=== PATIENT | male | born 1955 | race Caucasian/White ===

== ENCOUNTER 2017-02-11 15:23 | Emergency (ER) | payer OTHER ==
[~2017-02-11] VITALS: Ht 172.7 cm; Wt 63.5 kg
[~2017-02-11 15:23] MED LIST: AMOXICILLIN500 M3 PO; ASPIRIN CHILDRE81 MG PO; BACTRIM DS 8001 TA1 PO; BLOODPRESSURE; HYDROCODONE BIT1 T11 PO; KEFLEX500 MG PO; PERCOCET 325 MG1 TA4 PO; PREDNISONE10 MG PO; SUBOXONE 8 MG-1 EACH SL; TYLENOL W/CODEI1 TA2 PO; ZOVIRAX400 MG PO
[2017-02-11 16:07] LABS: HEMOGLOBIN 14.4 g/dl (14.0-18.0); MEAN CELL VOLUME 98.6 fl (80.0-94.0); MEAN CORPUSCULAR HGB 33.8 pg (27.0-31.0); MEAN CORPUSCULAR HGB CONC 34.3 g/dl (33.0-37.0); MEAN PLATELET VOLUME 9.1 fl (9.6-12.3); PLATELET COUNT AUTOMATED 238 10*3/uL (130-400); RED BLOOD COUNT 4.26 10*6/uL (4.50-5.90); RED CELL DISTRI WIDTH 13.1 % (0-14.5); WHITE BLOOD COUNT 22.1 10*3/uL (4.8-10.8)
[2017-02-11 16:22] LABS: ALKALINE PHOSPHATASE 89 U/L (45-117); BILIRUBIN, TOTAL 0.7 mg/dl (0.2-1.0); BUN 20 mg/dl (7-24); CARBON DIOXIDE 27 mmol/L (21-32); CHLORIDE 93 mmol/L (98-107); EST GLOM FILT AFRICAN AMERICAN > 60 ml/min; GLUCOSE 134 mg/dL (65-99); POTASSIUM 4.2 mmol/L (3.5-5.1); SGOT/AST 15 IU/L (3-35); SGPT/ALT 15 U/L (12-78); SODIUM 130 mmol/L (136-145); TOTAL PROTEIN 7.9 gm/dL (6.4-8.2)
[2017-02-11 16:26] LABS: BASOPHIL # 0.2 10*3/uL (0-0.1); BASOPHILS 1 % (0-1); LYMPHOCYTE # 1.1 10*3/uL (1.3-4.4); MONOCYTE # 2.2 10*3/uL (0.1-1.0); NEUTROPHIL # 18.6 10*3/uL (2.3-7.9); NEUTROPHILS 84 % (47-73); PLATELET SUFFICIENCY NORMAL (NORMAL); TOTAL CELLS COUNTED 100 #CELLS
[2017-02-11] MEDS ORDERED: CLINDAMYCIN HC300 MG PO (16:45)
== END 2017-02-11 16:56 | disposition left against medical advice (07) ==
LOC: ED 15:23
PROVIDERS: Nurse Practitioner Family
DX: L03.115 Cellulitis of right lower limb (principal); F17.200 Nicotine dependence, unspecified, uncomplicated; Z79.82 Long term (current) use of aspirin

== ENCOUNTER 2017-11-14 00:18 | Emergency (ER) | payer OTHER ==
[~2017-11-14] VITALS: Ht 172.7 cm; Wt 64.4 kg
[~2017-11-14 00:18] MED LIST changes: +CLINDAMYCIN HC300 MG PO
[2017-11-14] MEDS ORDERED: CYCLOBENZAPRINE5 M3 PO (02:06)
[2017-11-14] MEDS ORDERED: Motrin,Rufen800 MG PO (02:06)
== END 2017-11-14 02:05 | disposition home or self-care (01) ==
LOC: ED 00:18
DX: S39.012A Strain of muscle, fascia and tendon of lower back, initial encounter (principal); S16.1XXA Strain of muscle, fascia and tendon at neck level, initial encounter; F17.200 Nicotine dependence, unspecified, uncomplicated; Z79.899 Other long term (current) drug therapy; Z79.82 Long term (current) use of aspirin; V49.59XA Passenger injured in collision with other motor vehicles in traffic accident, initial encounter; Y93.89 Activity, other specified; Y92.89 Other specified places as the place of occurrence of the external cause; Y99.9 Unspecified external cause status

== ENCOUNTER 2018-05-13 20:07 | Emergency (ER) | payer MEDICARE ==
[~2018-05-13] VITALS: Ht 172.7 cm; Wt 63.5 kg
--- NOTE | ~2018-05-13 | EKG ---
[place], [place] ELECTROCARDIOGRAM REPORT NAME: KRYSTLE OBRIEN UNIT #: [id number] ROOM: DOCTOR: EPIPHANY DRAFT REPORT BIRTHDATE: [birth year] [facility] Test Date: 2018-05-13 Test Time: 20:38:34 Pat Name: KRYSTLE OBRIEN Department: Room: Gender: Director Of Preclinical Research: Maryjo Feliciano : 1955 Requested By: DONNA HUTTON Order Number: [id number] Reading MD: Alice Whalen MD Measurements Intervals [place] Rate: 74 P: 55 GA: 160 QRS: 54 QRSD: 93 T: 48 QT: 431 QTc: 479 Interpretive Statements Sinus rhythm Consider left ventricular hypertrophy Borderline prolonged QT interval Baseline wander in lead(s) V3,V4 Electronically Signed On 05-17-2018 13:55:19 PDT by Alice Whalen MD CM:EKGRPT:ELECTROCARDIOGRAM REPORT [id number] DONNA ARMENDARIZ DRAFT REPORT DONNA HUTTON DO
[~2018-05-13 20:07] MED LIST changes: +CYCLOBENZAPRINE5 M3 PO; +Motrin,Rufen800 MG PO
[2018-05-13 20:44] LABS: HEMATOCRIT 36.7 % (42.0-52.0); HEMOGLOBIN 12.6 g/dl (14.0-18.0); MEAN CELL VOLUME 97.6 fl (80.0-94.0); MEAN CORPUSCULAR HGB 33.5 pg (27.0-31.0); MEAN CORPUSCULAR HGB CONC 34.3 g/dl (33.0-37.0); MEAN PLATELET VOLUME 8.6 fl (9.6-12.3); PLATELET COUNT AUTOMATED 217 10*3/uL (130-400); RED BLOOD COUNT 3.76 10*6/uL (4.50-5.90); RED CELL DISTRI WIDTH 12.2 % (0-14.5); WHITE BLOOD COUNT 9.5 10*3/uL (4.8-10.8)
[2018-05-13 21:03] LABS: ALBUMIN 3.5 gm/dl (3.1-4.5); ALKALINE PHOSPHATASE 65 U/L (45-117); BUN 17 mg/dl (7-24); CHLORIDE 104 mmol/L (98-107); CREATININE 1.13 mg/dL (0.70-1.30); POTASSIUM 3.6 mmol/L (3.5-5.1); SGOT/AST 48 IU/L (3-35); SGPT/ALT 20 U/L (12-78); SODIUM 139 mmol/L (136-145); TOTAL PROTEIN 7.5 gm/dL (6.4-8.2)
[2018-05-13 21:04] LABS: BASOPHILS 1 % (0-1); TOTAL CELLS COUNTED 100 #CELLS
[2018-05-13 21:05] LABS: PLATELET SUFFICIENCY NORMAL (NORMAL)
[2018-05-13 21:11] LABS: TROPONIN I 0.089 ng/ml (<0.045)
[2018-05-13 21:34] LABS: ACT PARTIAL THROMBO TIME 25.9 SECONDS (20.8-31.5); INTERNATIONAL NORM RATIO 1.1 (2.0-3.5)
[2018-05-13] MEDS ORDERED: SKELAXIN800 M1 PO (21:58)
[2018-05-13] MEDS ORDERED: IBU800 MG PO (21:58)
== END 2018-05-13 22:05 | disposition left against medical advice (07) ==
LOC: ED 20:07
PROVIDERS: Student in an Organized Health Care Education/Training Program
DX: M54.5 Low back pain (principal); R55 Syncope and collapse; R79.89 Other specified abnormal findings of blood chemistry; Z79.82 Long term (current) use of aspirin

== ENCOUNTER 2022-07-16 13:06 | Emergency (ER) | payer MEDICARE, MEDICAID ==
[~2022-07-16] VITALS: Ht 172.7 cm; Wt 68.0 kg
[~2022-07-16 13:06] MED LIST changes: +IBU800 MG PO; +SKELAXIN800 M1 PO
[2022-07-16 14:34] LABS: BASO % 0.2 % (0.0-1.0); EOS # 0.2 10*3/uL (0.0-0.4); EOS % 1.9 % (1.0-4.0); HEMATOCRIT 44.4 % (42.0-52.0); LYMPH # 2.4 10*3/uL (1.3-4.4); LYMPH % 27.3 % (27.0-41.0); MEAN CELL VOLUME 94.7 fl (80.0-94.0); MEAN CORPUSCULAR HGB 32.2 pg (27.0-31.0); MEAN PLATELET VOLUME 9.4 fl (9.6-12.3); MONO # 0.9 10*3/uL (0.1-1.0); MONO % 10.6 % (3.0-9.0); NEUT # 5.3 10*3/uL (2.3-7.9); NEUT % 59.8 % (47.0-73.0); PLATELET COUNT AUTOMATED 341 10*3/uL (130-400); RED BLOOD COUNT 4.69 10*6/uL (4.50-5.90); WHITE BLOOD COUNT 8.9 10*3/uL (4.8-10.8)
[2022-07-16 14:46] LABS: ACT PARTIAL THROMBO TIME 27.1 SECONDS (20.0-32.1)
[2022-07-16 14:59] LABS: ALKALINE PHOSPHATASE 71 U/L (46-116); BUN 17 mg/dl (9-23); CHLORIDE 101 mmol/L (98-107); CREATININE 0.99 mg/dL (0.70-1.30); POTASSIUM 4.4 mmol/L (3.4-5.1); SGPT/ALT 11 U/L (10-49); SODIUM 134 mmol/L (136-145); TOTAL PROTEIN 7.8 gm/dL (6.0-8.0)
== END 2022-07-16 16:55 | disposition home or self-care (01) ==
LOC: ED 13:06
PROVIDERS: Emergency Medicine
DX: R07.89 Other chest pain (principal); R05.9 Cough, unspecified; R09.81 Nasal congestion; I25.2 Old myocardial infarction; Z79.82 Long term (current) use of aspirin

== ENCOUNTER → 2022-09-01 | Outpatient (CLI) | payer OTHER, MEDICAID ==
[2022-09-02 13:06] LABS: HBSAG Negative (Negative); HEP B CORE AB, IGM Negative (Negative)
[2022-09-04 14:08] LABS: HEPATITIS C ANTIBODY >11.0 (0.0-0.9)
== END | disposition home or self-care (01) ==
LOC: LAB 12:49
PROVIDERS: ATTEND Nurse Practitioner Family
DX: Z11.59 Encounter for screening for other viral diseases (principal); F11.20 Opioid dependence, uncomplicated; R53.83 Other fatigue

== ENCOUNTER → 2022-10-08 | Outpatient (CLI) | payer OTHER, MEDICAID ==
[2022-10-08 10:52] LABS: BASO % 0.3 % (0.0-1.0); EOS # 0.3 10*3/uL (0.0-0.4); EOS % 4.4 % (1.0-4.0); HEMATOCRIT 42.4 % (42.0-52.0); LYMPH # 1.6 10*3/uL (1.3-4.4); MEAN CELL VOLUME 97.2 fl (80.0-94.0); MEAN CORPUSCULAR HGB 31.9 pg (27.0-31.0); MEAN CORPUSCULAR HGB CONC 32.8 g/dl (33.0-37.0); MEAN PLATELET VOLUME 9.1 fl (9.6-12.3); MONO # 0.7 10*3/uL (0.1-1.0); NEUT # 3.3 10*3/uL (2.3-7.9); PLATELET COUNT AUTOMATED 274 10*3/uL (130-400); RED BLOOD COUNT 4.36 10*6/uL (4.50-5.90); RED CELL DISTRI WIDTH 12.6 % (0-14.5); WHITE BLOOD COUNT 5.9 10*3/uL (4.8-10.8)
[2022-10-08 11:07] LABS: ALKALINE PHOSPHATASE 65 U/L (46-116); BUN 18 mg/dl (9-23); CHLORIDE 107 mmol/L (98-107); CHOLESTEROL 123 mg/dL (<200); INTERNATIONAL NORM RATIO 1.1 (2.0-3.5); LDL CHOLESTEROL 49 mg/dL (9-159); POTASSIUM 3.8 mmol/L (3.4-5.1); SGPT/ALT 15 U/L (10-49); TRIGLYCERIDES 109 mg/dl (<150)
[2022-10-09 19:06] LABS: HEPATITIS C QNT HCV Not Detected IU/mL (.)
[2022-10-11 14:09] LABS: HCV RT-PCR RFX HCV Not Detected IU/mL (.)
== END | disposition home or self-care (01) ==
LOC: LAB 09:55
PROVIDERS: ATTEND Nurse Practitioner Family
DX: Z12.5 Encounter for screening for malignant neoplasm of prostate (principal); I10 Essential (primary) hypertension; Z76.89 Persons encountering health services in other specified circumstances; B18.2 Chronic viral hepatitis C

== ENCOUNTER 2023-05-04 11:59 | Emergency (ER) | payer OTHER ==
[~2023-05-04] VITALS: Ht 172.7 cm; Wt 59.9 kg
[~2023-05-04 11:59] MED LIST changes: +TOPROL XL25 MG PO; +VISTARIL50 MG PO; +ZOLOFT50 MG PO
[2023-05-04 12:46] LABS: BASO % 0.2 % (0.0-1.0); EOS # 0.3 10*3/uL (0.0-0.4); HEMATOCRIT 44.7 % (42.0-52.0); LYMPH # 1.7 10*3/uL (1.3-4.4); LYMPH % 18.6 % (27.0-41.0); MEAN CELL VOLUME 101.8 fl (80.0-94.0); MEAN CORPUSCULAR HGB 34.6 pg (27.0-31.0); MEAN PLATELET VOLUME 8.9 fl (9.6-12.3); MONO # 0.9 10*3/uL (0.1-1.0); MONO % 9.6 % (3.0-9.0); NEUT # 6.1 10*3/uL (2.3-7.9); NEUT % 68.4 % (47.0-73.0); PLATELET COUNT AUTOMATED 226 10*3/uL (130-400); RED BLOOD COUNT 4.39 10*6/uL (4.50-5.90); RED CELL DISTRI WIDTH 12.3 % (0-14.5)
[2023-05-04 13:10] LABS: ALKALINE PHOSPHATASE 75 U/L (46-116); BUN 27 mg/dl (9-23); CHLORIDE 105 mmol/L (98-107); POTASSIUM 4.4 mmol/L (3.4-5.1); SGPT/ALT 11 U/L (10-49); TOTAL PROTEIN 7.6 gm/dL (6.0-8.0)
[2023-05-04] MEDS ORDERED: ONDANSETRON4 MG SL (13:18)
== END 2023-05-04 13:40 | disposition home or self-care (01) ==
LOC: ED 11:59
PROVIDERS: Emergency Medicine
DX: R42 Dizziness and giddiness (principal); R11.0 Nausea; I10 Essential (primary) hypertension; G43.909 Migraine, unspecified, not intractable, without status migrainosus; K21.9 Gastro-esophageal reflux disease without esophagitis; I25.2 Old myocardial infarction; F19.10 Other psychoactive substance abuse, uncomplicated; Z95.5 Presence of coronary angioplasty implant and graft; F17.290 Nicotine dependence, other tobacco product, uncomplicated

== ENCOUNTER 2023-05-06 11:49 | Emergency (ER) | payer OTHER ==
[~2023-05-06] VITALS: Wt 59.9 kg
[~2023-05-06 11:49] MED LIST changes: +ONDANSETRON4 MG SL
[2023-05-06 13:19] LABS: BASO % 0.2 % (0.0-1.0); EOS # 0.3 10*3/uL (0.0-0.4); EOS % 4.2 % (1.0-4.0); LYMPH # 1.7 10*3/uL (1.3-4.4); LYMPH % 20.8 % (27.0-41.0); MEAN CELL VOLUME 102.4 fl (80.0-94.0); MEAN CORPUSCULAR HGB 34.9 pg (27.0-31.0); MEAN PLATELET VOLUME 8.6 fl (9.6-12.3); MONO % 11.8 % (3.0-9.0); NEUT # 5.1 10*3/uL (2.3-7.9); NEUT % 62.9 % (47.0-73.0); PLATELET COUNT AUTOMATED 202 10*3/uL (130-400); RED CELL DISTRI WIDTH 12.1 % (0-14.5); WHITE BLOOD COUNT 8.1 10*3/uL (4.8-10.8)
[2023-05-06 13:50] LABS: ALKALINE PHOSPHATASE 68 U/L (46-116); BUN 15 mg/dl (9-23); CHLORIDE 104 mmol/L (98-107); CPK 81 U/L (34-171); POTASSIUM 4.5 mmol/L (3.4-5.1); SGPT/ALT 10 U/L (10-49); TOTAL PROTEIN 7.4 gm/dL (6.0-8.0)
[2023-05-06] MEDS ORDERED: MECLIZINE HYD12.5 MG PO (15:16)
== END 2023-05-06 15:44 | disposition home or self-care (01) ==
LOC: ED 11:49
PROVIDERS: Nurse Practitioner Family
DX: R42 Dizziness and giddiness (principal); D53.9 Nutritional anemia, unspecified; I10 Essential (primary) hypertension; G43.909 Migraine, unspecified, not intractable, without status migrainosus; K21.9 Gastro-esophageal reflux disease without esophagitis; I25.2 Old myocardial infarction; F19.10 Other psychoactive substance abuse, uncomplicated; F14.10 Cocaine abuse, uncomplicated; F41.9 Anxiety disorder, unspecified; I25.10 Atherosclerotic heart disease of native coronary artery without angina pectoris; Z95.5 Presence of coronary angioplasty implant and graft; Z98.890 Other specified postprocedural states; F17.290 Nicotine dependence, other tobacco product, uncomplicated

== ENCOUNTER 2023-05-09 20:10 | Emergency (ER) | payer OTHER ==
[~2023-05-09] VITALS: Ht 170.1 cm; Wt 56.7 kg
[~2023-05-09 20:10] MED LIST changes: +MECLIZINE HYD12.5 MG PO
[2023-05-09 20:50] LABS: BASO % 0.3 % (0.0-1.0); EOS # 0.1 10*3/uL (0.0-0.4); EOS % 1.1 % (1.0-4.0); HEMATOCRIT 40.1 % (42.0-52.0); LYMPH % 19.6 % (27.0-41.0); MEAN CELL VOLUME 100.5 fl (80.0-94.0); MEAN CORPUSCULAR HGB 34.8 pg (27.0-31.0); MEAN CORPUSCULAR HGB CONC 34.7 g/dl (33.0-37.0); MEAN PLATELET VOLUME 8.5 fl (9.6-12.3); MONO # 0.9 10*3/uL (0.1-1.0); MONO % 9.1 % (3.0-9.0); NEUT # 7.1 10*3/uL (2.3-7.9); NEUT % 69.7 % (47.0-73.0); PLATELET COUNT AUTOMATED 223 10*3/uL (130-400); RED BLOOD COUNT 3.99 10*6/uL (4.50-5.90); RED CELL DISTRI WIDTH 12.1 % (0-14.5); WHITE BLOOD COUNT 10.2 10*3/uL (4.8-10.8)
[2023-05-09 21:01] LABS: ACT PARTIAL THROMBO TIME 26.6 SECONDS (20.0-32.1); INTERNATIONAL NORM RATIO 1.1 (2.0-3.5)
[2023-05-09 21:20] LABS: ALKALINE PHOSPHATASE 67 U/L (46-116); BUN 12 mg/dl (9-23); CHLORIDE 103 mmol/L (98-107); ETHYL ALCOHOL 132.9 mg/dl (<3); LIPASE 23 U/L (12-53); POTASSIUM 3.2 mmol/L (3.4-5.1); SGPT/ALT 17 U/L (10-49); TOTAL PROTEIN 7.4 gm/dL (6.0-8.0)
== END 2023-05-10 03:09 | disposition short-term general hospital (02) ==
LOC: ED
PROVIDERS: Internal Medicine
DX: I62.9 Nontraumatic intracranial hemorrhage, unspecified (principal); F17.210 Nicotine dependence, cigarettes, uncomplicated; Z79.899 Other long term (current) drug therapy; Z95.5 Presence of coronary angioplasty implant and graft

== ENCOUNTER 2023-08-29 11:00 | Emergency (ER) | payer OTHER ==
[~2023-08-29] VITALS: Ht 172.7 cm; Wt 59.9 kg
[2023-08-29] MEDS ORDERED: VIBRAMYCIN100 MG PO (14:06)
== END 2023-08-29 14:30 | disposition left against medical advice (07) ==
LOC: ED 11:00
DX: L03.113 Cellulitis of right upper limb (principal); I10 Essential (primary) hypertension; I25.2 Old myocardial infarction; G43.909 Migraine, unspecified, not intractable, without status migrainosus; K21.9 Gastro-esophageal reflux disease without esophagitis; F41.9 Anxiety disorder, unspecified; I25.10 Atherosclerotic heart disease of native coronary artery without angina pectoris; F17.210 Nicotine dependence, cigarettes, uncomplicated; Z79.899 Other long term (current) drug therapy; Z95.5 Presence of coronary angioplasty implant and graft

== ENCOUNTER 2024-08-29 12:22 | Emergency (ER) | payer OTHER ==
[~2024-08-29] VITALS: Wt 59.9 kg
[~2024-08-29 12:22] MED LIST changes: +VIBRAMYCIN100 MG PO
[2024-08-29] MEDS ORDERED: SODIUM CHLORIDE 0.9% 500 ML IV ONE (12:30)
[2024-08-29 12:50] LABS: BASO % 0.6 % (0.0-1.0); EOS # 0.4 10*3/uL (0.0-0.4); EOS % 7.1 % (1.0-4.0); HEMATOCRIT 42.3 % (42.0-52.0); MEAN CELL VOLUME 102.2 fl (80.0-94.0); MEAN CORPUSCULAR HGB 34.8 pg (27.0-31.0); MEAN PLATELET VOLUME 8.8 fl (9.6-12.3); MONO # 0.7 10*3/uL (0.1-1.0); MONO % 12.4 % (3.0-9.0); NEUT # 2.4 10*3/uL (2.3-7.9); NEUT % 44.3 % (47.0-73.0); PLATELET COUNT AUTOMATED 241 10*3/uL (130-400); RED BLOOD COUNT 4.14 10*6/uL (4.50-5.90); RED CELL DISTRI WIDTH 12.8 % (0-14.5); WHITE BLOOD COUNT 5.4 10*3/uL (4.8-10.8)
[2024-08-29 13:12] LABS: ALKALINE PHOSPHATASE 81 U/L (46-116); BUN 8 mg/dl (9-23); CHLORIDE 105 mmol/L (98-107); ETHYL ALCOHOL 199.7 mg/dl (<3); SGPT/ALT 12 U/L (5-49); TOTAL PROTEIN 7.1 gm/dL (6.0-8.0)
[2024-08-29 13:20] LABS: BILIRUBIN Negative (Negative); BLOOD Negative (Negative); CLARITY Clear (Clear); COLOR Yellow (Yellow); GLUCOSE Negative (Negative); KETONE Negative (Negative); LEUKO ESTERASE Negative (Negative); NITRITE Negative (Negative); PH 7.5 (4.5-8.0); SPECIFIC GRAVITY 1.015 (1.001-1.030)
[2024-08-29 13:30] LABS: URINE AMPHETAMINES Negative (1000ng/ml); URINE BARBITURATES Negative (200ng/ml); URINE BENZODIAZEPINES Negative (200ng/ml); URINE CANNABINOIDS (THC) Negative (50ng/ml); URINE COCAINE Negative (300ng/ml); URINE METHADONE Negative (300ng/ml); URINE OPIATES Negative (300ng/ml); URINE PHENCYCLIDINE Negative (25ng/ml)
[2024-08-29 13:45] LABS: RBC 0-2 rbc/hpf (0-2)
== END 2024-08-29 18:10 | disposition home or self-care (01) ==
LOC: ED 12:22
PROVIDERS: Internal Medicine
DX: F10.129 Alcohol abuse with intoxication, unspecified (principal); R69 Illness, unspecified; I10 Essential (primary) hypertension; G43.909 Migraine, unspecified, not intractable, without status migrainosus; Z20.822 Contact with and (suspected) exposure to COVID-19; K21.9 Gastro-esophageal reflux disease without esophagitis; I25.2 Old myocardial infarction; Z79.899 Other long term (current) drug therapy; F17.200 Nicotine dependence, unspecified, uncomplicated; Z95.5 Presence of coronary angioplasty implant and graft; Z98.890 Other specified postprocedural states; Y90.6 Blood alcohol level of 120-199 mg/100 ml

== ENCOUNTER 2024-12-30 09:40 | Inpatient (IN) | payer OTHER ==
[~2024-12-30] VITALS: Ht 172.7 cm; Wt 55.8 kg
[~2024-12-30 09:40] MED LIST changes: +ASPIRIN ADULT L81 M1 PO; +CARVEDILOL6.25 MG PO; +FUROSEMIDE40 MG PO; +Ipratropium Brom3 ML NEB; +JARDIANCE10 MG PO; +LEVOFLOXACIN750 M2 PO; +LISINOPRIL5 MG PO; +MUCUS RELIEF E600 MG PO; +NARCAN4 MG INH; +NEBULIZER NEB; +VITAMIN D350 MCG PO
[2024-12-30 10:02] VITALS: BP 166/100
[2024-12-30] MEDS ORDERED: Ipratropium Brom3 ML INH (10:07)
[2024-12-30] MEDS ORDERED: SUBOXONE 8 MG-1 EACH BC (10:08)
[2024-12-30 10:13] VITALS: BP 152/108
[2024-12-30 10:31] LABS: BASO % 0.3 % (0.0-1.0); EOS % 0.1 % (1.0-4.0); HEMATOCRIT 37.4 % (42.0-52.0); MEAN CELL VOLUME 99.7 fl (80.0-94.0); MEAN CORPUSCULAR HGB 32.8 pg (27.0-31.0); MEAN CORPUSCULAR HGB CONC 32.9 g/dl (33.0-37.0); MEAN PLATELET VOLUME 9.1 fl (9.6-12.3); MONO # 0.7 10*3/uL (0.1-1.0); MONO % 7.8 % (3.0-9.0); NEUT # 7.6 10*3/uL (2.3-7.9); NEUT % 82.2 % (47.0-73.0); PLATELET COUNT AUTOMATED 209 10*3/uL (130-400); RED BLOOD COUNT 3.75 10*6/uL (4.50-5.90); RED CELL DISTRI WIDTH 15.6 % (0-14.5); WHITE BLOOD COUNT 9.2 10*3/uL (4.8-10.8)
[2024-12-30 11:14] LABS: ALKALINE PHOSPHATASE 136 U/L (46-116); BUN 20 mg/dl (9-23); CHLORIDE 102 mmol/L (98-107); POTASSIUM 3.7 mmol/L (3.4-5.1); SGPT/ALT 66 U/L (5-49); TOTAL PROTEIN 6.8 gm/dL (6.0-8.0)
[2024-12-30] MEDS ORDERED: cefTRIAXone Sodium 1 GM/10 ML SYR IV ONE (11:20)
[2024-12-30] MEDS ORDERED: AZITHROMYCIN 250 ML IV ONE (11:20)
[2024-12-30] MEDS ORDERED: FUROSEMIDE 40 MG/4 ML VIAL IV ONE (11:20)
[2024-12-30] MEDS ORDERED: Ondansetron Hydrochloride 4 MG/2 ML VIAL IV ONE (11:40)
[2024-12-30] MEDS ORDERED: FAMOTIDINE 50 ML IV ONE (11:40)
[2024-12-30] MEDS ORDERED: LEVOFLOXACIN 150 ML IV ONE (12:00)
[2024-12-30 13:19] VITALS: BP 148/92
[2024-12-30] MEDS ORDERED: BISACODYL 10 MG SUPP R PRN (15:25)
[2024-12-30] MEDS ORDERED: ACETAMINOPHEN 325 MG TAB PO PRN (15:25)
[2024-12-30] MEDS ORDERED: BISACODYL 5 MG TAB PO PRN (15:25)
[2024-12-30] MEDS ORDERED: Ondansetron Hydrochloride 4 MG/2 ML VIAL IV PRN (15:25)
[2024-12-30] MEDS ORDERED: ACETAMINOPHEN 650 MG SUPP R PRN (15:25)
[2024-12-30] MEDS ORDERED: Magnesium Hydroxide 30 ML UDC PO PRN (15:25)
[2024-12-30 16:16] LABS: ABG BASE EXCESS -1.6 mmol/L (-2.0-3.0); ABG O2 SATURATION 96.5 % (94.0-98.0); ARTERIAL BLOOD GAS PH 7.425 (7.350-7.450); ARTERIAL BLOOD GAS PO2 91.8 mmHg (83.0-108.0)
[2024-12-30 17:15] VITALS: BP 150/106
[2024-12-30 17:30] VITALS: BP 144/108
[2024-12-30] MEDS ORDERED: FUROSEMIDE 40 MG/4 ML VIAL IV SCH (18:00)
[2024-12-30 20:00] VITALS: BP 150/98
[2024-12-30] MEDS ORDERED: acetaZOLAMIDE 250 MG TAB PO SCH (22:00)
[2024-12-30] MEDS ORDERED: CARVEDILOL 6.25 MG TAB PO SCH (22:00)
[2024-12-31] VITALS: BP 140/98
[2024-12-31] MEDS ORDERED: LORazepam 1 MG TAB PO ONE ×2 (00:05→04:15)
[2024-12-31] MEDS ORDERED: Albuterol Sulf/Ipratropium 3 ML VIAL NEB PRN (00:05)
[2024-12-31 04:29] LABS: BASO % 0.2 % (0.0-1.0); EOS # 0.1 10*3/uL (0.0-0.4); EOS % 1.1 % (1.0-4.0); HEMATOCRIT 34.5 % (42.0-52.0); MEAN CELL VOLUME 100.3 fl (80.0-94.0); MEAN CORPUSCULAR HGB 33.1 pg (27.0-31.0); MEAN PLATELET VOLUME 9.2 fl (9.6-12.3); MONO # 0.8 10*3/uL (0.1-1.0); MONO % 9.1 % (3.0-9.0); NEUT # 6.8 10*3/uL (2.3-7.9); PLATELET COUNT AUTOMATED 177 10*3/uL (130-400); RED BLOOD COUNT 3.44 10*6/uL (4.50-5.90); RED CELL DISTRI WIDTH 15.9 % (0-14.5); WHITE BLOOD COUNT 9.1 10*3/uL (4.8-10.8)
[2024-12-31 04:57] LABS: TOTAL PROTEIN 6.4 gm/dL (6.0-8.0)
[2024-12-31 08:00] VITALS: BP 131/94
[2024-12-31] MEDS ORDERED: LEVOFLOXACIN 750 MG TAB PO SCH (10:00)
[2024-12-31] MEDS ORDERED: MULTIVITAMIN 1 TAB TAB PO SCH (10:00)
[2024-12-31] MEDS ORDERED: Thiamine 100 MG TAB PO SCH (10:00)
[2024-12-31] MEDS ORDERED: ASPIRIN ENTERIC COATED 81 MG TAB PO SCH (10:00)
[2024-12-31] MEDS ORDERED: LISINOPRIL 5 MG TAB PO SCH (10:00)
[2024-12-31] MEDS ORDERED: Enoxaparin Sodium 40 MG/0.4 ML SYR SC SCH (10:00)
[2024-12-31 12:00] VITALS: BP 133/99
[2024-12-31] MEDS ORDERED: LORazepam 1 MG TAB PO SCH (14:00)
[2024-12-31 16:00] VITALS: BP 122/86
[2024-12-31 20:00] VITALS: BP 111/87
[2024-12-31 23:40] LABS: URINE AMPHETAMINES Negative (1000ng/ml); URINE BARBITURATES Negative (200ng/ml); URINE BENZODIAZEPINES Negative (200ng/ml); URINE CANNABINOIDS (THC) Negative (50ng/ml); URINE COCAINE Positive (300ng/ml); URINE METHADONE Negative (300ng/ml); URINE OPIATES Negative (300ng/ml); URINE PHENCYCLIDINE Negative (25ng/ml)
[2025-01-01] VITALS: BP 105/67
[2025-01-01 07:04] LABS: BASO % 0.1 % (0.0-1.0); EOS # 0.1 10*3/uL (0.0-0.4); EOS % 1.7 % (1.0-4.0); HEMATOCRIT 37.3 % (42.0-52.0); MEAN CELL VOLUME 102.8 fl (80.0-94.0); MEAN CORPUSCULAR HGB 33.1 pg (27.0-31.0); MEAN CORPUSCULAR HGB CONC 32.2 g/dl (33.0-37.0); MEAN PLATELET VOLUME 10.1 fl (9.6-12.3); MONO # 0.7 10*3/uL (0.1-1.0); MONO % 10.1 % (3.0-9.0); NEUT # 5.1 10*3/uL (2.3-7.9); NEUT % 72.2 % (47.0-73.0); PLATELET COUNT AUTOMATED 167 10*3/uL (130-400); RED BLOOD COUNT 3.63 10*6/uL (4.50-5.90); RED CELL DISTRI WIDTH 15.9 % (0-14.5); WHITE BLOOD COUNT 7.1 10*3/uL (4.8-10.8)
[2025-01-01 07:23] LABS: POTASSIUM 3.3 mmol/L (3.4-5.1); TOTAL PROTEIN 5.6 gm/dL (6.0-8.0)
[2025-01-01 08:00] VITALS: BP 140/59
[2025-01-01] MEDS ORDERED: POTASSIUM CHLORIDE 20 MEQ TAB PO ONE ×2 (09:10→10:45)
[2025-01-01 16:00] VITALS: BP 94/56
[2025-01-01] MEDS ORDERED: LORazepam 1 MG TAB PO SCH (16:00)
[2025-01-01 18:12] VITALS: BP 90/63
[2025-01-01 20:00] VITALS: BP 119/64; BP 90/57
[2025-01-02] VITALS: BP 101/73
[2025-01-02] MEDS ORDERED: LORazepam 1 MG TAB PO PRN
[2025-01-02 06:35] VITALS: BP 110/74
[2025-01-02 06:46] LABS: BASO % 0.1 % (0.0-1.0); EOS # 0.1 10*3/uL (0.0-0.4); EOS % 1.7 % (1.0-4.0); HEMATOCRIT 40.6 % (42.0-52.0); MEAN CELL VOLUME 102.8 fl (80.0-94.0); MEAN CORPUSCULAR HGB 32.4 pg (27.0-31.0); MEAN CORPUSCULAR HGB CONC 31.5 g/dl (33.0-37.0); MEAN PLATELET VOLUME 10.1 fl (9.6-12.3); MONO # 0.7 10*3/uL (0.1-1.0); MONO % 8.6 % (3.0-9.0); NEUT # 6.4 10*3/uL (2.3-7.9); NEUT % 77.4 % (47.0-73.0); PLATELET COUNT AUTOMATED 177 10*3/uL (130-400); RED BLOOD COUNT 3.95 10*6/uL (4.50-5.90); RED CELL DISTRI WIDTH 15.6 % (0-14.5); WHITE BLOOD COUNT 8.3 10*3/uL (4.8-10.8)
[2025-01-02 07:38] LABS: POTASSIUM 3.6 mmol/L (3.4-5.1); TOTAL PROTEIN 6.1 gm/dL (6.0-8.0)
[2025-01-02 08:00] VITALS: BP 97/70
[2025-01-02] MEDS ORDERED: LEVOFLOXACIN 750 MG TAB PO SCH (10:00)
[2025-01-02 12:00] VITALS: BP 100/64
[2025-01-02 16:00] VITALS: BP 105/69
[2025-01-02 20:00] VITALS: BP 94/67
[2025-01-03] VITALS (7 sets, daily range): BP systolic 90–151; BP diastolic 67–79
[2025-01-03 07:37] LABS: BUN 24 mg/dl (9-23); CHLORIDE 102 mmol/L (98-107); POTASSIUM 3.4 mmol/L (3.4-5.1)
[2025-01-04] VITALS: BP 109/74
[2025-01-04 06:40] VITALS: BP 110/73
[2025-01-04 07:25] LABS: BASO % 0.1 % (0.0-1.0); EOS # 0.1 10*3/uL (0.0-0.4); EOS % 1.9 % (1.0-4.0); HEMATOCRIT 42.9 % (42.0-52.0); MEAN CELL VOLUME 100.9 fl (80.0-94.0); MEAN CORPUSCULAR HGB CONC 31.7 g/dl (33.0-37.0); MEAN PLATELET VOLUME 9.4 fl (9.6-12.3); MONO # 1.2 10*3/uL (0.1-1.0); NEUT # 4.2 10*3/uL (2.3-7.9); NEUT % 56.9 % (47.0-73.0); PLATELET COUNT AUTOMATED 200 10*3/uL (130-400); RED BLOOD COUNT 4.25 10*6/uL (4.50-5.90); WHITE BLOOD COUNT 7.3 10*3/uL (4.8-10.8)
[2025-01-04 07:27] LABS: BUN 26 mg/dl (9-23); CHLORIDE 102 mmol/L (98-107); POTASSIUM 3.5 mmol/L (3.4-5.1)
[2025-01-04 08:00] VITALS: BP 113/84
[2025-01-04 12:00] VITALS: BP 101/67
[2025-01-04 16:00] VITALS: BP 90/76
[2025-01-04 20:00] VITALS: BP 107/71
[2025-01-05] VITALS: BP 91/50
[2025-01-05 05:35] LABS: POTASSIUM 3.9 mmol/L (3.4-5.1)
[2025-01-05 06:38] LABS: BASO % 0.1 % (0.0-1.0); EOS # 0.1 10*3/uL (0.0-0.4); EOS % 1.4 % (1.0-4.0); MEAN CELL VOLUME 101.1 fl (80.0-94.0); MEAN CORPUSCULAR HGB 32.6 pg (27.0-31.0); MEAN CORPUSCULAR HGB CONC 32.2 g/dl (33.0-37.0); MEAN PLATELET VOLUME 9.8 fl (9.6-12.3); MONO # 0.9 10*3/uL (0.1-1.0); MONO % 11.4 % (3.0-9.0); NEUT # 5.1 10*3/uL (2.3-7.9); NEUT % 64.7 % (47.0-73.0); PLATELET COUNT AUTOMATED 192 10*3/uL (130-400); RED BLOOD COUNT 4.45 10*6/uL (4.50-5.90)
[2025-01-05 08:00] VITALS: BP 92/50
[2025-01-05 12:00] VITALS: BP 100/62
[2025-01-05 16:00] VITALS: BP 114/74
[2025-01-05] MEDS ORDERED: FUROSEMIDE 40 MG TAB PO SCH (18:00)
[2025-01-05 20:00] VITALS: BP 108/73
[2025-01-06] VITALS: BP 101/65
[2025-01-06 06:20] LABS: BASO % 0.3 % (0.0-1.0); EOS # 0.2 10*3/uL (0.0-0.4); EOS % 2.1 % (1.0-4.0); HEMATOCRIT 44.3 % (42.0-52.0); MEAN CELL VOLUME 100.2 fl (80.0-94.0); MEAN CORPUSCULAR HGB 32.1 pg (27.0-31.0); MEAN CORPUSCULAR HGB CONC 32.1 g/dl (33.0-37.0); MEAN PLATELET VOLUME 9.5 fl (9.6-12.3); MONO # 1.1 10*3/uL (0.1-1.0); MONO % 15.2 % (3.0-9.0); NEUT % 54.7 % (47.0-73.0); PLATELET COUNT AUTOMATED 207 10*3/uL (130-400); RED BLOOD COUNT 4.42 10*6/uL (4.50-5.90); RED CELL DISTRI WIDTH 15.7 % (0-14.5); WHITE BLOOD COUNT 7.3 10*3/uL (4.8-10.8)
[2025-01-06 06:29] LABS: BUN 33 mg/dl (9-23); CHLORIDE 107 mmol/L (98-107); POTASSIUM 3.8 mmol/L (3.4-5.1)
[2025-01-06 08:00] VITALS: BP 105/88
[2025-01-06 13:00] VITALS: BP 86/40
[2025-01-06 16:00] VITALS: BP 89/62
[2025-01-06 20:00] VITALS: BP 120/83
[2025-01-07] VITALS: BP 100/74
[2025-01-07 06:02] LABS: BASO % 0.3 % (0.0-1.0); EOS # 0.1 10*3/uL (0.0-0.4); EOS % 1.4 % (1.0-4.0); HEMATOCRIT 47.2 % (42.0-52.0); MEAN CORPUSCULAR HGB 32.1 pg (27.0-31.0); MEAN CORPUSCULAR HGB CONC 32.4 g/dl (33.0-37.0); MEAN PLATELET VOLUME 9.6 fl (9.6-12.3); MONO # 1.2 10*3/uL (0.1-1.0); MONO % 15.3 % (3.0-9.0); NEUT # 4.3 10*3/uL (2.3-7.9); NEUT % 55.9 % (47.0-73.0); PLATELET COUNT AUTOMATED 236 10*3/uL (130-400); RED BLOOD COUNT 4.77 10*6/uL (4.50-5.90); RED CELL DISTRI WIDTH 15.5 % (0-14.5); WHITE BLOOD COUNT 7.7 10*3/uL (4.8-10.8)
[2025-01-07 06:25] LABS: BUN 29 mg/dl (9-23); CHLORIDE 107 mmol/L (98-107); POTASSIUM 3.7 mmol/L (3.4-5.1)
[2025-01-07 08:00] VITALS: BP 135/92
[2025-01-07] MEDS ORDERED: LEVOFLOXACIN 750 MG TAB PO SCH (10:00)
[2025-01-07] MEDS ORDERED: FUROSEMIDE40 MG PO (10:46)
[2025-01-07] MEDS ORDERED: ASPIRIN ADULT L81 M2 PO (10:46)
[2025-01-07] MEDS ORDERED: KLOR-CON 1010 ME1 PO (10:47)
== END 2025-01-07 13:03 | disposition home or self-care (01) | DRG 871 ==
LOC: ED 09:40 → EDHOLD 15:02 → 5E 15:02
PROVIDERS: Family Medicine; Internal Medicine; Internal Medicine Critical Care Medicine; Student in an Organized Health Care Education/Training Program; ADMIT Internal Medicine; ATTEND Internal Medicine
PROC: 5A09357 Assistance with Respiratory Ventilation, Less than 24 Consecutive Hours, Continuous Positive Airway Pressure (ICD-10-PCS; principal; 2024-12-30)
PROC: 5A09357 Assistance with Respiratory Ventilation, Less than 24 Consecutive Hours, Continuous Positive Airway Pressure (ICD-10-PCS; 2025-01-01)
PROC: 5A09357 Assistance with Respiratory Ventilation, Less than 24 Consecutive Hours, Continuous Positive Airway Pressure (ICD-10-PCS; 2025-01-03)
PROC: 5A09357 Assistance with Respiratory Ventilation, Less than 24 Consecutive Hours, Continuous Positive Airway Pressure (ICD-10-PCS; 2025-01-04)
DX: A41.9 Sepsis, unspecified organism (principal); I50.21 Acute systolic (congestive) heart failure; J15.69 Pneumonia due to other Gram-negative bacteria; J96.21 Acute and chronic respiratory failure with hypoxia; J44.0 Chronic obstructive pulmonary disease with (acute) lower respiratory infection; J91.8 Pleural effusion in other conditions classified elsewhere; F10.930 Alcohol use, unspecified with withdrawal, uncomplicated; F41.9 Anxiety disorder, unspecified; I25.10 Atherosclerotic heart disease of native coronary artery without angina pectoris; I11.0 Hypertensive heart disease with heart failure; R65.20 Severe sepsis without septic shock; D53.9 Nutritional anemia, unspecified; R73.9 Hyperglycemia, unspecified; E55.9 Vitamin D deficiency, unspecified; R74.01 Elevation of levels of liver transaminase levels; Z88.8 Allergy status to other drugs, medicaments and biological substances; Z91.09 Other allergy status, other than to drugs and biological substances; Z88.1 Allergy status to other antibiotic agents; Z79.899 Other long term (current) drug therapy; Z72.0 Tobacco use; Z91.199 Patient's noncompliance with other medical treatment and regimen due to unspecified reason; Z79.01 Long term (current) use of anticoagulants; Z79.2 Long term (current) use of antibiotics; Z95.5 Presence of coronary angioplasty implant and graft; Z81.1 Family history of alcohol abuse and dependence; Y90.0 Blood alcohol level of less than 20 mg/100 ml

== ENCOUNTER 2025-02-04 07:02 | Inpatient (IN) | payer OTHER ==
[~2025-02-04] VITALS: Ht 172.7 cm; Wt 64.0 kg
[2025-02-04] VITALS (7 sets, daily range): BP systolic 116–180; BP diastolic 76–131
[~2025-02-04 07:02] MED LIST changes: +ASPIRIN ADULT L81 M2 PO; +Ipratropium Brom3 ML INH; +KLOR-CON 1010 ME1 PO; +SUBOXONE 8 MG-1 EACH BC
[2025-02-04] MEDS ORDERED: Albuterol Sulf/Ipratropium 3 ML VIAL NEB ONE (07:10)
[2025-02-04 07:47] LABS: BASO # 0.1 10*3/uL (0.0-0.1); BASO % 0.4 % (0.0-1.0); EOS # 0.4 10*3/uL (0.0-0.4); EOS % 3.2 % (1.0-4.0); MEAN CELL VOLUME 102.5 fl (80.0-94.0); MEAN CORPUSCULAR HGB 32.0 pg (27.0-31.0); MEAN PLATELET VOLUME 8.7 fl (9.6-12.3); MONO # 0.7 10*3/uL (0.1-1.0); MONO % 6.2 % (3.0-9.0); NEUT # 7.3 10*3/uL (2.3-7.9); NEUT % 63.5 % (47.0-73.0); NUCLEATED RED BLOOD CELL 0.0 % (0.0-0.0); NUCLEATED RED BLOOD CELL 0.0 10*3/uL (0.0-0.0); PLATELET COUNT AUTOMATED 287 10*3/uL (130-400); RED CELL DISTRI WIDTH 16.1 % (0-14.5); VENOUS BLOOD GAS O2 SAT 60.0 % (60.0-85.0)
[2025-02-04] MEDS ORDERED: SODIUM CHLORIDE 0.9% 1,000 ML IV SCH (07:50)
[2025-02-04] MEDS ORDERED: LEVOFLOXACIN 150 ML IV ONE (07:50)
[2025-02-04 07:58] LABS: ACT PARTIAL THROMBO TIME 25.7 SECONDS (20.0-32.1)
[2025-02-04 08:07] LABS: BUN 20 mg/dl (9-23)
[2025-02-04] MEDS ORDERED: BISACODYL 5 MG TAB PO PRN (10:40)
[2025-02-04] MEDS ORDERED: Ondansetron Hydrochloride 4 MG/2 ML VIAL IV PRN (10:40)
[2025-02-04] MEDS ORDERED: ACETAMINOPHEN 325 MG TAB PO PRN (10:40)
[2025-02-04] MEDS ORDERED: ACETAMINOPHEN 650 MG SUPP R PRN (10:40)
[2025-02-04] MEDS ORDERED: Acetaminophen/Hydrocodone 5 MG/325 MG TABLET PO PRN (10:40)
[2025-02-04] MEDS ORDERED: BISACODYL 10 MG SUPP R PRN (10:40)
[2025-02-04] MEDS ORDERED: FUROSEMIDE 40 MG/4 ML VIAL IV ONE (11:25)
[2025-02-04] MEDS ORDERED: Midazolam Hydrochloride 2 MG/2 ML VIAL IV ONE ×2 (12:10→20:50)
[2025-02-04] MEDS ORDERED: LISINOPRIL 5 MG TAB PO SCH (13:45)
[2025-02-04] MEDS ORDERED: CARVEDILOL 12.5 MG TAB PO SCH (13:45)
[2025-02-04 14:22] LABS: ABG O2 SATURATION 96.9 % (94.0-98.0); ARTERIAL BLOOD GAS PH 7.471 (7.350-7.450); ARTERIAL BLOOD GAS PO2 80.6 mmHg (83.0-108.0)
[2025-02-04 14:23] LABS: ABG BASE EXCESS -2.1 mmol/L (-2.0-3.0)
[2025-02-04] MEDS ORDERED: FUROSEMIDE 20 MG/2 ML VIAL IV SCH (18:00)
[2025-02-05] VITALS: BP 115/77
[2025-02-05 04:00] VITALS: BP 118/86
[2025-02-05 06:01] LABS: BASO # 0.0 10*3/uL (0.0-0.1); BASO % 0.1 % (0.0-1.0); EOS # 0.0 10*3/uL (0.0-0.4); EOS % 0.0 % (1.0-4.0); MEAN CELL VOLUME 100.3 fl (80.0-94.0); MEAN CORPUSCULAR HGB 32.1 pg (27.0-31.0); MEAN PLATELET VOLUME 9.3 fl (9.6-12.3); MONO # 0.9 10*3/uL (0.1-1.0); MONO % 6.6 % (3.0-9.0); NEUT # 11.3 10*3/uL (2.3-7.9); NEUT % 85.3 % (47.0-73.0); NUCLEATED RED BLOOD CELL 0.0 % (0.0-0.0); NUCLEATED RED BLOOD CELL 0.0 10*3/uL (0.0-0.0); PLATELET COUNT AUTOMATED 238 10*3/uL (130-400); RED CELL DISTRI WIDTH 15.9 % (0-14.5)
[2025-02-05 06:42] LABS: BUN 27 mg/dl (9-23); SGPT/ALT 8 U/L (5-49)
[2025-02-05 08:00] VITALS: BP 130/88
[2025-02-05] MEDS ORDERED: ASPIRIN ENTERIC COATED 81 MG TAB PO SCH (10:00)
[2025-02-05 12:00] VITALS: BP 117/75
[2025-02-05 16:00] VITALS: BP 128/79
[2025-02-05] MEDS ORDERED: FUROSEMIDE 40 MG/4 ML VIAL IV SCH (18:00)
[2025-02-05 20:00] VITALS: BP 133/89
[2025-02-05] MEDS ORDERED: LORazepam 1 MG TAB PO ONE (20:40)
[2025-02-06] VITALS: BP 108/66
[2025-02-06 06:39] LABS: BASO # 0.0 10*3/uL (0.0-0.1); BASO % 0.1 % (0.0-1.0); EOS # 0.0 10*3/uL (0.0-0.4); EOS % 0.1 % (1.0-4.0); MEAN CELL VOLUME 99.5 fl (80.0-94.0); MEAN CORPUSCULAR HGB 32.5 pg (27.0-31.0); MEAN PLATELET VOLUME 9.6 fl (9.6-12.3); MONO # 1.5 10*3/uL (0.1-1.0); MONO % 7.7 % (3.0-9.0); NEUT # 16.1 10*3/uL (2.3-7.9); NEUT % 83.4 % (47.0-73.0); NUCLEATED RED BLOOD CELL 0.0 % (0.0-0.0); NUCLEATED RED BLOOD CELL 0.0 10*3/uL (0.0-0.0); PLATELET COUNT AUTOMATED 259 10*3/uL (130-400); RED CELL DISTRI WIDTH 15.9 % (0-14.5)
[2025-02-06 06:59] LABS: BUN 29 mg/dl (9-23)
[2025-02-06 08:00] VITALS: BP 116/70
[2025-02-06] MEDS ORDERED: PREDNISONE50 MG PO (10:56)
[2025-02-06] MEDS ORDERED: METOPROLOL SUCC25 M2 PO (10:56)
[2025-02-06] MEDS ORDERED: VIBRA-TAB100 MG PO (10:56)
[2025-02-06 12:00] VITALS: BP 107/56
== END 2025-02-06 12:24 | disposition home or self-care (01) | DRG 871 ==
LOC: ED 07:02 → ICCU 09:48 → EDHOLD 09:48 → 4E 09:48 → ICCU 10:41 → 4E 02-05 14:59
PROVIDERS: Internal Medicine; ADMIT Internal Medicine; ATTEND Internal Medicine
PROC: 5A09357 Assistance with Respiratory Ventilation, Less than 24 Consecutive Hours, Continuous Positive Airway Pressure (ICD-10-PCS; principal; 2025-02-04)
PROC: 5A09357 Assistance with Respiratory Ventilation, Less than 24 Consecutive Hours, Continuous Positive Airway Pressure (ICD-10-PCS; 2025-02-05)
DX: A41.9 Sepsis, unspecified organism (principal); I50.23 Acute on chronic systolic (congestive) heart failure; J69.0 Pneumonitis due to inhalation of food and vomit; J96.02 Acute respiratory failure with hypercapnia; J18.9 Pneumonia, unspecified organism; J96.21 Acute and chronic respiratory failure with hypoxia; J44.1 Chronic obstructive pulmonary disease with (acute) exacerbation; I25.10 Atherosclerotic heart disease of native coronary artery without angina pectoris; R65.20 Severe sepsis without septic shock; I10 Essential (primary) hypertension; R76.8 Other specified abnormal immunological findings in serum; F41.1 Generalized anxiety disorder; E55.9 Vitamin D deficiency, unspecified; F17.210 Nicotine dependence, cigarettes, uncomplicated; R79.89 Other specified abnormal findings of blood chemistry; Z88.1 Allergy status to other antibiotic agents; Z95.5 Presence of coronary angioplasty implant and graft; Z81.1 Family history of alcohol abuse and dependence; Z84.89 Family history of other specified conditions; Z79.82 Long term (current) use of aspirin; Z79.899 Other long term (current) drug therapy

== ENCOUNTER 2025-03-12 05:02 | Inpatient (IN) | payer OTHER ==
[~2025-03-12] VITALS: Ht 172.7 cm; Wt 62.9 kg
[~2025-03-12 05:02] MED LIST changes: +ACETAZOLAMIDE250 MG PO; +LASIX40 MG PO; +METOPROLOL SUCC25 M2 PO; +POTASSIUM CHLO10 MEQ PO; +PREDNISONE50 MG PO; +VAZALORE81 MG PO; +VIBRA-TAB100 MG PO
[2025-03-12 05:04] VITALS: BP 171/119
[2025-03-12] MEDS ORDERED: LEVOFLOXACIN 150 ML IV ONE (06:10)
[2025-03-12] MEDS ORDERED: Albuterol Sulf/Ipratropium 3 ML VIAL NEB ONE (06:25)
[2025-03-12 07:09] LABS: BASO # 0.0 10*3/uL (0.0-0.1); BASO % 0.1 % (0.0-1.0); EOS # 0.1 10*3/uL (0.0-0.4); EOS % 0.5 % (1.0-4.0); MEAN CELL VOLUME 102.3 fl (80.0-94.0); MEAN CORPUSCULAR HGB 33.1 pg (27.0-31.0); MEAN PLATELET VOLUME 8.8 fl (9.6-12.3); MONO # 0.5 10*3/uL (0.1-1.0); MONO % 5.2 % (3.0-9.0); NEUT # 7.8 10*3/uL (2.3-7.9); NEUT % 84.0 % (47.0-73.0); NUCLEATED RED BLOOD CELL 0.0 % (0.0-0.0); NUCLEATED RED BLOOD CELL 0.0 10*3/uL (0.0-0.0); PLATELET COUNT AUTOMATED 255 10*3/uL (130-400); RED CELL DISTRI WIDTH 16.1 % (0-14.5)
[2025-03-12 07:26] LABS: BUN 22 mg/dl (9-23)
[2025-03-12 07:34] VITALS: BP 168/95
[2025-03-12] MEDS ORDERED: diphenhydrAMINE hydrochloride 50 MG/ML VIAL IV ONE (08:20)
[2025-03-12 09:40] VITALS: BP 160/111
[2025-03-12] MEDS ORDERED: ACETAMINOPHEN 325 MG TAB PO PRN (10:05)
[2025-03-12] MEDS ORDERED: ACETAMINOPHEN 650 MG SUPP R PRN (10:05)
[2025-03-12] MEDS ORDERED: BISACODYL 10 MG SUPP R PRN (10:05)
[2025-03-12] MEDS ORDERED: TEMAZEPAM 15 MG CAP PO PRN (10:05)
[2025-03-12] MEDS ORDERED: BISACODYL 5 MG TAB PO PRN (10:05)
[2025-03-12] MEDS ORDERED: Ondansetron Hydrochloride 4 MG/2 ML VIAL IV PRN (10:05)
[2025-03-12] MEDS ORDERED: Albuterol Sulf/Ipratropium 3 ML VIAL NEB PRN (10:25)
[2025-03-12] MEDS ORDERED: acetaZOLAMIDE 250 MG TAB PO SCH (10:39)
[2025-03-12] MEDS ORDERED: ASPIRIN ENTERIC COATED 81 MG TAB PO SCH (10:40)
[2025-03-12] MEDS ORDERED: POTASSIUM CHLORIDE 10 MEQ TAB PO SCH (10:40)
[2025-03-12] MEDS ORDERED: LISINOPRIL 5 MG TAB PO SCH (10:40)
[2025-03-12] MEDS ORDERED: BUPRENORPHINE HCL/NALOXONE 8 MG-2 MG SL TABLET SL SCH (10:40)
[2025-03-12] MEDS ORDERED: FUROSEMIDE 40 MG TAB PO SCH (10:40)
[2025-03-12] MEDS ORDERED: METOPROLOL SUCCINATE XR 25 MG TAB PO SCH (10:40)
[2025-03-12 12:00] VITALS: BP 162/113
[2025-03-12] MEDS ORDERED: Vancomycin Hydrochloride 1,000 MG in SODIUM CHLORIDE 0.9% 250 ML IV SCH (14:00)
[2025-03-12 16:00] VITALS: BP 124/70
== END 2025-03-12 17:13 | disposition left against medical advice (07) | DRG 871 ==
LOC: ED 05:02 → EDHOLD 08:50 → 5E 09:09
PROVIDERS: Internal Medicine; ADMIT Family Medicine; ATTEND Family Medicine
DX: A41.9 Sepsis, unspecified organism (principal); I21.A1 Myocardial infarction type 2; J18.9 Pneumonia, unspecified organism; J96.21 Acute and chronic respiratory failure with hypoxia; I50.20 Unspecified systolic (congestive) heart failure; I11.0 Hypertensive heart disease with heart failure; R65.20 Severe sepsis without septic shock; D53.9 Nutritional anemia, unspecified; E87.8 Other disorders of electrolyte and fluid balance, not elsewhere classified; R73.9 Hyperglycemia, unspecified; I25.10 Atherosclerotic heart disease of native coronary artery without angina pectoris; J44.9 Chronic obstructive pulmonary disease, unspecified; F41.9 Anxiety disorder, unspecified; Z95.5 Presence of coronary angioplasty implant and graft; Z91.148 Patient's other noncompliance with medication regimen for other reason; Z81.1 Family history of alcohol abuse and dependence; Z84.89 Family history of other specified conditions; Z88.1 Allergy status to other antibiotic agents; Z79.82 Long term (current) use of aspirin; Z79.899 Other long term (current) drug therapy

== ENCOUNTER 2025-03-23 08:19 | Emergency (ER) | payer OTHER ==
[~2025-03-23] VITALS: Ht 172.7 cm; Wt 59.9 kg
[~2025-03-23 08:19] MED LIST changes: +Carafate1 GM PO; +DOXYCYCLINE HY100 M3 PO; +KLOR-CON M2020 ME1 PO; +PROTONIX40 MG PO
[2025-03-23] MEDS ORDERED: NITROGLYCERIN 1 IN PACKET T ONE (08:30)
[2025-03-23] MEDS ORDERED: Ondansetron Hydrochloride 4 MG/2 ML VIAL IV ONE (08:30)
[2025-03-23 09:34] LABS: BASO # 0.0 10*3/uL (0.0-0.1); BASO % 0.2 % (0.0-1.0); EOS # 0.1 10*3/uL (0.0-0.4); EOS % 0.7 % (1.0-4.0); MEAN CELL VOLUME 102.8 fl (80.0-94.0); MEAN CORPUSCULAR HGB 32.6 pg (27.0-31.0); MEAN PLATELET VOLUME 9.7 fl (9.6-12.3); MONO # 0.9 10*3/uL (0.1-1.0); MONO % 9.7 % (3.0-9.0); NEUT # 6.2 10*3/uL (2.3-7.9); NEUT % 70.1 % (47.0-73.0); NUCLEATED RED BLOOD CELL 0.0 % (0.0-0.0); NUCLEATED RED BLOOD CELL 0.0 10*3/uL (0.0-0.0); PLATELET COUNT AUTOMATED 274 10*3/uL (130-400); RED CELL DISTRI WIDTH 15.1 % (0-14.5)
[2025-03-23 09:51] LABS: BUN 17 mg/dl (9-23); CPK 39 U/L (34-171)
[2025-03-23] MEDS ORDERED: CALCIUM (TUMS) 500MG PO ONE (10:15)
[2025-03-23] MEDS ORDERED: ALBUTEROL 8 GM INHALER INH ONE (10:15)
[2025-03-23] MEDS ORDERED: Dexamethasone Sodium Phospha 20 MG/5 ML VIAL IV ONE (10:15)
[2025-03-23] MEDS ORDERED: PREDNISONE20 M1 PO (10:18)
[2025-03-24] MEDS ORDERED: DOXYCYCLINE HY100 M3 PO (13:37)
[2025-03-24] MEDS ORDERED: LASIX40 MG PO (13:37)
[2025-03-24] MEDS ORDERED: JARDIANCE10 MG PO (13:37)
[2025-03-24] MEDS ORDERED: METOPROLOL SUCC25 M2 PO (13:37)
[2025-03-24] MEDS ORDERED: ASPIRIN CHILDRE81 MG PO (13:37)
[2025-03-24] MEDS ORDERED: Carafate1 GM PO (13:37)
[2025-03-24] MEDS ORDERED: KLOR-CON M2020 ME1 PO (13:37)
[2025-03-24] MEDS ORDERED: PROTONIX40 MG PO (13:37)
== END 2025-03-23 10:51 | disposition home or self-care (01) ==
LOC: ED 08:19
PROVIDERS: Emergency Medicine
DX: J44.1 Chronic obstructive pulmonary disease with (acute) exacerbation (principal); I25.2 Old myocardial infarction; I25.10 Atherosclerotic heart disease of native coronary artery without angina pectoris; I50.20 Unspecified systolic (congestive) heart failure; R74.8 Abnormal levels of other serum enzymes; F17.200 Nicotine dependence, unspecified, uncomplicated; Z88.1 Allergy status to other antibiotic agents; Z79.82 Long term (current) use of aspirin; Z79.899 Other long term (current) drug therapy; Z95.5 Presence of coronary angioplasty implant and graft